=== PATIENT | female | born 1985 | race Caucasian/White ===

== ENCOUNTER 2020-10-01 15:42 | Emergency (ER) | payer BC, MEDICAID ==
--- NOTE | 2020-10-01 16:52 | EDM.PDOC ---
ED HPI GENERAL MEDICAL PROBLEM - General Chief Complaint: General Stated Complaint: SWOLLEN R/SIDE OF FACE Time Seen by Provider: 10/01/20 16:42 Source of Information: Reports: Patient, Family History Limitations: Reports: No Limitations - History of Present Illness INITIAL COMMENTS - FREE TEXT/NARRATIVE: 35-year-old female presents emergency department day complaint of facial pain and swelling, she has a broken tooth on the right side of her face over the last 24 hours she has noticed some tenderness over that tooth felt her face is warm and outside noticed some redness as well. No fevers right face Pain Score (Numeric/FACES): 2 - Related Data Allergies Allergy/AdvReac Type Severity Reaction Status Date / Time amoxicillin Allergy Nausea Verified 10/01/20 16:14 ciprofloxacin [From Cipro] Allergy Nausea Verified 10/01/20 16:14 doxycycline Allergy Nausea Verified 10/01/20 16:14 morphine Allergy Anxiety Verified 10/01/20 16:14 Home Meds: Home Meds ARIPiprazole [Abilify] 15 mg PO DAILY 10/01/20 [History] Cannabidiol (Cbd) Extract [Cannabis (Medical)] 5 mg PO ASDIRECTED PRN 10/01/20 [History] Cholecalciferol (Vitamin D3) [Vitamin D3] 2,000 unit PO DAILY 10/01/20 [History] Etanercept [Enbrel] 25 mg SQ ASDIRECTED 10/01/20 [History] Meloxicam [Mobic] 7.5 mg PO DAILY 10/01/20 [History] QUEtiapine [SEROquel] 25 mg PO BEDTIME 10/01/20 [History] Sertraline [Zoloft] 200 mg PO DAILY 10/01/20 [History] busPIRone [Buspar] 30 mg PO BID 10/01/20 [History] Past Medical History HEENT History: Reports: Impaired Vision, Other (See Below) Other HEENT History: difficult intubation Gastrointestinal History: Reports: Irritable Bowel Syndrome Musculoskeletal History: Reports: Fibromyalgia, Osteoarthritis, RA, Other (See Below) (Achondroplasia) Psychiatric History: Reports: Anxiety, Depression, OCD, PTSD - Infectious Disease History Infectious Disease History: Reports: Chicken Pox, Shingles - Past Surgical History HEENT Surgical History: Reports: Myringotomy w Tube(s) Musculoskeletal Surgical History: Reports: Other (See Below) Other Musculoskeletal Surgeries/Procedures:: leg and wrist surgeries Social & Family History - Tobacco Use Tobacco Use Status *Q: Never Tobacco User - Recreational Drug Use Recreational Drug Type: Reports: Other (see below) Other Recreational Drug Type: medical cannabis ED ROS GENERAL - Review of Systems Review Of Systems: See Below Constitutional: Reports: No Symptoms HEENT: Reports: Dental Pain ED EXAM, GENERAL - Physical Exam Exam: See Below Free Text/Narrative:: Mouth mucosa is moist and pink no erythema exudate known soft palate tongue is midline uvula is midline she does have a broken tooth #2 there is tenderness around this tooth palpation of the face does reveal some edema and tenderness out on appreciate any warmth or erythema to the face Course - Vital Signs Last Recorded V/S: Last Vital Signs Temp 97.6 F 10/01/20 16:22 Pulse 118 H 10/01/20 16:22 Resp 16 10/01/20 16:22 BP 153/85 H 10/01/20 16:22 Pulse Ox 97 10/01/20 16:22 Departure - Departure Time of Disposition: 16:52 Disposition: Home, Self-Care 01 Condition: Fair Clinical Impression: Dental abscess - Discharge Information Instructions: Dental Abscess Referrals: PCP,None [Primary Care Provider] - Additional Instructions: Take full course of antibiotics, please followup with your dentist upon return home if not better, please call return to the emergency department with worsening of symptoms. Sepsis Event Note (ED) - Evaluation Sepsis Screening Result: No Definite Risk - Focused Exam Vital Signs: Vital Signs Temp Pulse Resp BP Pulse Ox 10/01/20 16:22 97.6 F 118 H 16 153/85 H 97 10/01/20 16:02 97.6 F 118 H 16 153/85 H 97 - Assessment/Plan Plan: Assessment Acuity = acute Site and laterality = dental abscess tooth #2 Etiology = probable bacterial cause Manifestations = none Location of injury = Home Lab values = none Plan Because she is traveling elected to treat her empirically with clindamycin 150 p.o. 3 times daily x10 days follow-up with dentistry upon return home This note was dictated using [employer] voice recognition software please call with any questions on syntax or grammar.
== END 2020-10-01 17:14 | disposition home or self-care (01) ==
LOC: JP.ED 15:42
DX: K04.7 Periapical abscess without sinus (principal); M06.9 Rheumatoid arthritis, unspecified; Z88.0 Allergy status to penicillin; Z88.1 Allergy status to other antibiotic agents; Z88.5 Allergy status to narcotic agent; Z79.899 Other long term (current) drug therapy
CPT/HCPCS: 99283

== ENCOUNTER 2020-10-06 11:55 | Emergency (ER) | payer BC, MEDICAID ==
--- NOTE | 2020-10-06 12:03 | EDM.PDOC ---
ED HPI GENERAL MEDICAL PROBLEM - General Chief Complaint: Gastrointestinal Problem Stated Complaint: DIAREAH/VOMITTING Time Seen by Provider: 10/06/20 12:03 Source of Information: Reports: Patient History Limitations: Reports: No Limitations - History of Present Illness INITIAL COMMENTS - FREE TEXT/NARRATIVE: 35 year old female presenting with vomiting and diarrhea. the patient reports she was seen in the ED 5 days ago for dental pain and concern for an abscessed tooth. She was started on Clindamycin at that time. She notes that the following day she developed some mild diarrhea that has progressed and now for the past 2 days she has had 5-6 episodes of watery diarrhea, no blood noted. She notes that today she had one episode of vomiting. she has some mild intermittent abdominal cramping, none currently. No fever, but reports feeling "flushed" at times. She does note a history of C diff, but states that this seems different and doesn't smell like when she had C diff previously. - Related Data Allergies Allergy/AdvReac Type Severity Reaction Status Date / Time amoxicillin Allergy Mild Nausea Verified 10/06/20 12:26 ciprofloxacin [From Cipro] Allergy Mild Nausea Verified 10/06/20 12:26 doxycycline Allergy Mild Nausea Verified 10/06/20 12:26 morphine Allergy Mild Anxiety Verified 10/06/20 12:26 Home Meds: Home Meds ARIPiprazole [Abilify] 15 mg PO DAILY 10/01/20 [History] Cannabidiol (Cbd) Extract [Cannabis (Medical)] 5 mg PO ASDIRECTED PRN 10/01/20 [History] Cholecalciferol (Vitamin D3) [Vitamin D3] 2,000 unit PO DAILY 10/01/20 [History] Etanercept [Enbrel] 25 mg SQ ASDIRECTED 10/01/20 [History] Meloxicam [Mobic] 7.5 mg PO DAILY 10/01/20 [History] QUEtiapine [SEROquel] 25 mg PO BEDTIME 10/01/20 [History] Sertraline [Zoloft] 200 mg PO DAILY 10/01/20 [History] busPIRone [Buspar] 30 mg PO BID 10/01/20 [History] Clindamycin HCl 150 mg PO TID 10/06/20 [History] L.acidoph,Paracasei, B.lactis [Probiotic] 1 each PO DAILY 10/06/20 [History] Past Medical History HEENT History: Reports: Impaired Vision, Other (See Below) Other HEENT History: difficult intubation Gastrointestinal History: Reports: Irritable Bowel Syndrome Musculoskeletal History: Reports: Fibromyalgia, Osteoarthritis, RA, Other (See Below) (Achondroplasia) Other Musculoskeletal History: dwarfism Psychiatric History: Reports: Anxiety, Depression, OCD, PTSD - Infectious Disease History Infectious Disease History: Reports: Chicken Pox, Shingles - Past Surgical History HEENT Surgical History: Reports: Myringotomy w Tube(s) Musculoskeletal Surgical History: Reports: Other (See Below) Other Musculoskeletal Surgeries/Procedures:: leg and wrist surgeries Social & Family History - Family History Family Medical History: No Pertinent Family History ED ROS GENERAL - Review of Systems Review Of Systems: Comprehensive ROS is negative, except as noted in HPI. ED EXAM, GI/ABD - Physical Exam Exam: See Below Exam Limited By: No Limitations General Appearance: Alert, No Apparent Distress Ears: Normal External Exam Nose: Normal Inspection Throat/Mouth: Other (MMM) Head: Atraumatic, Normocephalic Neck: Supple, Full Range of Motion Respiratory/Chest: No Respiratory Distress, Lungs Clear, Normal Breath Sounds, No Accessory Muscle Use Cardiovascular: Tachycardia GI/Abdominal Exam: Soft, Non-Tender. No: Guarding, Rigid, Rebound Neurological: Alert, Oriented, CN II-XII Intact, No Motor/Sensory Deficits Psychiatric: Normal Affect, Normal Mood Skin Exam: Warm, Dry Course - Vital Signs Last Recorded V/S: Last Vital Signs Temp 98.3 F 10/06/20 12:37 Pulse 134 H 10/06/20 12:37 Resp 15 10/06/20 12:37 BP 139/93 H 10/06/20 12:37 Pulse Ox 97 10/06/20 12:37 - Orders/Labs/Meds Orders: Active Orders 24 hr Category Date Time Status Sodium Chloride 0.9% [Normal Saline] 1,000 ml Med 10/06/20 13:00 Active IV ASDIRECTED Medication Orders Sodium Chloride (Normal Saline) 1,000 mls @ 1,000 mls/hr IV ASDIRECTED RIZWANA Last Admin: 10/06/20 13:48 Dose: 1,000 mls/hr Documented by: [id number] Labs: Laboratory Tests 10/06/20 10/06/20 10/06/20 Range/Units 13:40 13:40 14:17 WBC 6.7 (4.5-11.0) K/uL RBC 4.52 (3.30-5.50) M/uL Hgb 14.5 (12.0-15.0) g/dL Hct 40.8 (36.0-48.0) % MCV 90 (80-98) fL MCH 32 H (27-31) pg MCHC 36 (32-36) % Plt Count 135 L (150-400) K/uL Neut % (Auto) 81.1 H (36-66) % Lymph % (Auto) 11.5 L (24-44) % [place] % (Auto) 6.6 H (2-6) % Eos % (Auto) 0.7 L (2-4) % Baso % (Auto) 0.1 (0-1) % Sodium 141 (140-148) mmol/L Potassium 4.1 (3.6-5.2) mmol/L Chloride 103 (100-108) mmol/L Carbon Dioxide 24 (21-32) mmol/L Anion Gap 14.1 H (5.0-14.0) mmol/L BUN 10 (7-18) mg/dL Creatinine 0.5 L (0.6-1.0) mg/dL Est Cr Clr Drug Dosing TNP Estimated GFR (MDRD) > 60 (>60) Glucose 94 (74-106) mg/dL Calcium 8.5 (8.5-10.1) mg/dL SARS CoV-2 RNA Rapid ISSA Negative Meds: Medications Generic Name Dose Route Start Last Admin Trade Name Freq PRN Reason Stop Dose Admin Sodium Chloride 1,000 mls @ 1,000 mls/hr 10/06/20 13:00 10/06/20 13:48 Normal Saline IV 1,000 mls/hr ASDIRECTED RIZWANA Administration Discontinued Medications Generic Name Dose Route Start Last Admin Trade Name Freq PRN Reason Stop Dose Admin Lorazepam 0.5 mg 10/06/20 12:52 10/06/20 13:01 Lorazepam 0.5 Mg Tab PO 10/06/20 12:53 0.5 mg ONETIME ONE Administration Departure - Departure Time of Disposition: 14:45 Disposition: Home, Self-Care 01 Condition: Good Clinical Impression: Diarrhea due to drug, Vomiting - Discharge Information Instructions: Diarrhea, Adult, [id number] Referrals: PCP,None [Primary Care Provider] - Forms: ED Department Discharge Additional Instructions: Use the zofran as needed for nausea. Make sure to drink plenty of fluids to stay hydrated. Continue your antibiotics as prescribed until you have finished it. Sepsis Event Note (ED) - Focused Exam Vital Signs: Vital Signs Temp Pulse Resp BP Pulse Ox 10/06/20 12:37 98.3 F 134 H 15 139/93 H 97 10/06/20 12:22 98.3 F 134 H 15 139/93 H 97 - My Orders Last 24 Hours: My Active Orders 10/06/20 13:00 Sodium Chloride 0.9% [Normal Saline] 1,000 ml IV ASDIRECTED - Assessment/Plan Last 24 Hours: My Active Orders 10/06/20 13:00 Sodium Chloride 0.9% [Normal Saline] 1,000 ml IV ASDIRECTED Assessment:: This is a 35 year old female presenting with several days of diarrhea and one episode of vomiting today in the setting of starting antibiotics recently for a dental infection. She is afebrile on arrival, well appearing, with a benign abdominal exam. Differential diagnosis includes C diff, antibiotic side effect, viral gastroenteritis, food poisoning, among others. Labs are unremarkable. C diff is negative. Covid negative. I suspect that her symptoms are a side effect of the antibiotics. She continues to have a benign abdominal exam and I have low suspicion for serious intra-abdominal pathology and do not feel imaging is indicated. She was tachycardic initially, but this resolved with IVF (HR 130's down to 100 after IVF). She is tolerating PO and is appropriate for discharge home at this time. I will send her home with zofran to use as needed. she can follow up with PCP as needed. Instructed to return to the ED for worsening symptoms, including fever, abdominal pain, persistent vomiting, or other concerning symptoms.
[2020-10-06] MEDS ORDERED: LORazepam 0.5 MG Tab PO ONE (12:52)
[2020-10-06] MEDS ORDERED: Sodium Chloride 0.9% 1,000 ML IV SCH (13:00)
== END 2020-10-06 15:16 | disposition home or self-care (01) ==
LOC: JP.ED 11:55
DX: K52.1 Toxic gastroenteritis and colitis (principal); T36.8X5A Adverse effect of other systemic antibiotics, initial encounter; R11.10 Vomiting, unspecified; Z88.0 Allergy status to penicillin; Z88.1 Allergy status to other antibiotic agents; Z88.5 Allergy status to narcotic agent; Z20.822 Contact with and (suspected) exposure to COVID-19
CPT/HCPCS: 36415; 80048; 85025; 87493; 87635; 99284; A9270; J7030; U0002